=== PATIENT | female | born 2000 | race Caucasian/White ===

== ENCOUNTER → 2021-07-31 | Outpatient (CLI) | payer OTHER ==
--- NOTE | 2021-08-02 08:52 | XR ---
EXAMINATION TYPE: XR thoracic spine complete DATE OF EXAM: 07/31/2021 COMPARISON: None HISTORY: Neck and back pain TECHNIQUE: Three-view thoracic spine FINDINGS: There are 12 thoracic type vertebral bodies. Pedicles are intact. Disc heights are preserve d. Vertebral body heights are preserved. Mild scoliosis is present with convexity to the right. IMPRESSION: 1. No acute osseous abnormality thoracic spine. 2. Mild scoliosis.
--- NOTE | 2021-08-02 08:53 | XR ---
EXAMINATION TYPE: XR cervical spine comp DATE OF EXAM: 07/31/2021 COMPARISON: None HISTORY: Neck and back pain TECHNIQUE: Five-view cervical spine FINDINGS: Vertebral body heights are preserved. Disc heights are preserved. Prevertebral space is nor mal. Posterior spinal lamellar line is intact. Foramen are patent. The odontoid is visualized is norm al. IMPRESSION: 1. Normal cervical spine
== END | disposition home or self-care (01) ==
LOC: RADXRMAIN 10:46
PROVIDERS: ATTEND Family Medicine
DX: M41.9 Scoliosis, unspecified (principal)
CPT/HCPCS: 72050; 72072